=== PATIENT | female | born 1990 | race Caucasian/White ===

== ENCOUNTER 2019-01-14 13:21 | Emergency (ER) | payer SELFPAY ==
--- NOTE | 2019-01-14 14:10 | ED Physician Documentation ---
Upper Respiratory Symptoms - HISTORIAN Historian: patient - HPI Stated Complaint: fever/body aches Chief Complaint: Upper Respiratory Symptoms Onset: days ago (3) Associated Symptoms: fever, chills, sore throat, productive cough, other (body aches) - ROS CONST/EYES: denies: weakness, eye redness, eye itching, other CVS/RESP: none LYMPH: leg swelling, rash, swollen glands, ankle swelling, other GI/: none NEURO/PSYCH: denies: fainting, dizziness, confusion, anxiety, depression, other MS/SKIN: denies: joint pain, muscle aches, rash, other - PAST HX Lung Disease: none Other History: other (depression) Allergies/Adverse Reactions: Allergies Allergy/AdvReac Type Severity Reaction Status Date / Time No Known Allergies Allergy Verified 01/14/19 14:02 Home Medications: Ambulatory Orders Medication Instructions Recorded Lamotrigine [Lamictal] 25 mg PO DAILY 11/28/18 Sertraline HCl [Zoloft] 50 mg PO DAILY 11/28/18 Trazodone HCl 50 mg PO DAILY 11/28/18 - SOCIAL HX Smoking History: cigarettes Drug Use: marijuana - FAMILY HX Family History: denies: none - VITAL SIGNS Vital Signs: Vital Signs Temp Pulse Resp BP Pulse Ox 98.4 F 102 H 16 118/68 98 01/14/19 13:32 01/14/19 13:32 01/14/19 13:32 01/14/19 13:32 01/14/19 13:32 - REVIEWED ASSESSMENTS Nursing Assessment Reviewed: Yes Vitals Reviewed: Yes Progress - Progress Progress: Patient presents with likely influenza - nasal swab negative. ED Results Lab/Radiology - Orders Orders: ED Orders Category Date Time Status INFLUENZA A&B Stat Lab 01/14/19 13:24 Ordered Rapid Strep [GRP A STREP SCREEN] Stat Lab 01/14/19 Ordered Upper Respiratory Symptoms - EXAM General Appearance: mild distress, other (ill appearing) EENT: eyes nml inspection, nml ENT inspection, lids & conjunct. nml, PERRL, ear nml, nose nml, pharynx nml, airway nml Respiratory: no resp. distress, breath sounds nml, no pain on inspiration, speaks full sentences, no pleuritic chest pain Abdomen: non-tender, no organomegaly, nml bowel sounds, no distention CVS: reg rate & rhythm, heart sounds normal, equal pulses, no murmur, no gallop, PMI nml, no JVD, no friction rub, 24 Skin: color nml, no rash, warm,dry Extremities: non-tender, normal range of motion, no evidence of injury, no edema, J, [employer] Neuro/Psych: oriented x3, neuro intact, mood/affect nml, CN's nml as tested Discharge Clincal Impression: Viral syndrome Referrals: Primary Doctor,No [Primary Care Provider] - 2 Days Additional Instructions: Treat your symptoms with over the counter medication. 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 Dayquil can be taken every 4 hours. (Caution: Dayquil and Nyquil contain 325mg of tyelnol/acetaminophen per tablespoon) You may want to try Vicks rub on your chest and/or feet. Cough drops as needed for cough and sore throat. Increase your fluid intake juices, hot tea, non-caffeinated beverages Vitamin C may be helpful in decreasing the length of your cold. Use a humidifier in the room where you sleep. You can also sit in a steam filled bathroom 1-2 times a day. Tylenol every 4 hours 650mg -1000mg (do not exceed 4000mg in 24 hours) as needed for fever, pain and body aches. Alternate with Ibuprofen Ibuprofen 600-800mg every 6 hours as needed for fever, pain and body aches. See your primary care doctor if your symptoms become worse or do not improve in the next 2-3 days. Condition: Stable Disposition: 01 HOME, SELF-CARE Decision to Admit: NO Decision Time: 14:15
[2019-01-14] MEDS ORDERED: KETOROLAC TROMETHAMINE 60 MG/2 ML VIAL IM ONE (14:13)
[2019-01-14] MEDS ORDERED: ACETAMINOPHEN 500 MG TABLET PO ONE (14:13)
[2019-01-14 14:53] VITALS: BP 120/85
== END 2019-01-14 14:49 | disposition home or self-care (01) ==
LOC: ED 13:21
DX: B34.9 Viral infection, unspecified (principal); Z72.0 Tobacco use
CPT/HCPCS: 87070; 87400; 87880; 96372; 99282; 99283; J1885

== ENCOUNTER 2019-02-05 21:29 | Emergency (ER) | payer SELFPAY ==
--- NOTE | 2019-02-05 21:57 | ED Physician Documentation ---
Abdominal Pain - HISTORIAN Historian: patient - HPI Stated Complaint: Gastric pain for a couple weeks, got worse tonight with some emesis Chief Complaint: Abdominal Pain Onset: other (over two weeks ) Duration: waxing, waning Timing: other (improved when she is not standing) Context: denies: out of country travel, bad food, recent trauma Severity: moderate (although severe when the "attack hits" ) Quality: burning Associated Symptoms: nausea, vomiting. denies: fever, diarrhea Exacerbated by: upright position, walking Relieved by: supine, remaining still, antacids Further Comments: yes (She states over two weeks ago she started with nausea and vomiting and she was seen) - ROS CONST: no problems GI/: none CVS/RESP: none EYES/ENT: none MS/SKIN/LYMPH: none NEURO/PSYCH: none - SOCIAL HX Smoking History: cigarettes Alcohol Use: none Drug Use: none - FAMILY HX Family History: none - PAST HX Past History: none Ischemic Bowel Risk Factors: none Other History: none Surgeries/Procedures: none Immunizations: UTD Home Medications: Ambulatory Orders Medication Instructions Recorded Lamotrigine [Lamictal] 25 mg PO DAILY 11/28/18 Sertraline HCl [Zoloft] 50 mg PO DAILY 11/28/18 Trazodone HCl 50 mg PO PRN PRN 11/28/18 Allergies/Adverse Reactions: Allergies Allergy/AdvReac Type Severity Reaction Status Date / Time No Known Allergies Allergy Verified 01/14/19 14:02 - VITAL SIGNS Vital Signs: Vital Signs Temp Pulse Resp BP Pulse Ox 98.7 F 77 14 99/69 97 02/05/19 21:29 02/05/19 23:41 02/05/19 23:41 02/05/19 23:41 02/05/19 23:41 - REVIEWED ASSESSMENTS Nursing Assessment Reviewed: Yes Vitals Reviewed: Yes Progress - Progress Progress: 2305: discussed current findings - she reports she feels "SO MUCH BETTER" - denies any nausea and denies any pain. Discussed plan - she is agreeable DG ED Results Lab/Radiology - Lab Results Lab Results: Lab Results 02/05/19 02/05/19 02/05/19 22:40 22:40 20:03 WBC 7.10 K/ul K/ul (4.00-12.00) RBC 4.90 M/ul M/ul (3.90-5.20) Hgb 14.6 g/dL g/dL (12.0-16.0) Hct 44.3 % % (34.5-46.5) MCV 90.0 fl fl (80.0-100.0) MCH 29.8 pg pg (28.0-34.0) MCHC 33.0 g/dL g/dL (30.0-36.0) RDW 14.1 % % (11.3-14.3) Plt Count 256 K/mm3 K/mm3 (130-400) Neut % (Auto) 47.0 % % (39.0-79.0) Lymph % (Auto) 44.6 % % (16.0-50.0) Coles % (Auto) 6.3 % % (0.0-11.0) Eos % (Auto) 1.0 % % (0.0-6.8) Baso % (Auto) 1.1 % % (0.0-1.5) Neut # (Auto) 3.3 # k/uL # k/uL (1.4-7.7) Lymph # (Auto) 3.2 # k/uL # k/uL (0.6-4.0) Coles # (Auto) 0.4 # k/uL # k/uL (0.0-0.9) Eos # (Auto) 0.1 # k/uL # k/uL (0.0-0.6) Baso # (Auto) 0.1 # k/uL # k/uL (0.0-0.5) Sodium 138 mmol/L mmol/L (136-145) Potassium 3.9 mmol/L mmol/L (3.5-5.1) Chloride 105 mmol/L mmol/L (98-107) Carbon Dioxide 26 mmol/L mmol/L (22-30) BUN 8 mg/dL mg/dL (7-17) Creatinine 0.62 mg/dL mg/dL (0.52-1.04) Estimated Creat Clear 173 Est GFR ( Amer) > 60 (60 - ) Est GFR (Non-Af Amer) > 60 (60 - ) Glucose 88 mg/dL mg/dL (74-106) Calcium 9.0 mg/dL mg/dL (8.4-10.2) Total Bilirubin 0.3 mg/dL mg/dL (0.2-1.3) AST 47 U/L H U/L (15-46) ALT 31 U/L U/L (13-69) Alkaline Phosphatase 96 U/L U/L (38-126) Total Protein 8.1 g/dL g/dL (6.3-8.2) Albumin 4.0 g/dL g/dL (3.5-5.0) Urine Color [place] (YELLOW) Urine Appearance Cloudy H (CLEAR) Urine pH 7.5 (5.0 - 8.0) Ur Specific [place] 1.025 (1.010-1.030) Urine Protein 1+ mg/dL H mg/dL (NEGATIVE) Urine Ketones Trace mg/dL H mg/dL (NEGATIVE) Urine Occult Blood 2+ H (NEGATIVE) Urine Nitrite Negative (NEGATIVE) Urine Bilirubin Negative (NEGATIVE) Urine Urobilinogen 1.0 Eu Eu (0.2-1.0) Ur Leukocyte Esterase 1+ H (NEGATIVE) Urine Glucose Negative mg/dL mg/dL (NEGATIVE) Urine HCG, Qual Negative (NEGATIVE) - Orders Orders: ED Orders Category Date Time Status IV Started NOW Care 02/05/19 22:10 Active CBC/PLATELET/DIFF Stat Lab 02/05/19 22:40 Completed CMP Stat Lab 02/05/19 22:40 Completed UA MACRO DIP ONLY Routine Lab 02/05/19 20:03 Completed URINE HCG Routine Lab 02/05/19 20:03 Completed 0.9 % Sodium Chloride [Normal Saline] 1,000 ml Med 02/05/19 22:10 Discontinued IV NOW Mag Hydrox/Aluminum Hyd/Simeth [Mylanta] 30 ml Med 02/05/19 21:57 Discontinued Lidocaine 2% Viscous [Xylocaine 2% Viscous] 15 ml PO NOW Ondansetron HCl Rapdis [Zofran Odt] Med 02/05/19 23:09 Discontinued 8 mg PO NOW ONE Ondansetron HCl/Pf [Zofran] Med 02/05/19 22:10 Discontinued 4 mg IVP NOW ONE Pantoprazole Sodium [Protonix] 40 mg Med 02/05/19 22:11 Discontinued 0.9 % Sodium Chloride [Normal Saline] 50 ml IV NOW Abdominal Pain Physical Exam - Physical Exam General Appearance: alert, mild distress EENT: eye inspection normal, pharynx normal, no signs of dehydration NECK: normal inspection RESPIRATORY: no resp distress, chest non-tender, breath sounds normal CVS: reg rate & rhythm, heart sounds normal, equal pulses ABDOMEN: soft, normal bowel sounds, tenderness (epigatric ) BACK: normal inspection, no CVA tenderness SKIN: warm/dry, normal color EXTREMITIES: non-tender, normal range of motion, no evidence of injury, no edema NEURO: oriented X3 Vital Signs: Vital Signs Temp Pulse Resp BP Pulse Ox 98.7 F 77 14 99/69 97 02/05/19 21:29 02/05/19 23:41 02/05/19 23:41 02/05/19 23:41 02/05/19 23:41 Discharge Clincal Impression: Epigastric pain Referrals: Primary Doctor,No [Primary Care Provider] - 2 Days Comments: 1. Protonix 40 mg take 1 by mouth daily 2. Zofran 4 mg ODT take 1 by mouth every 8 hours as needed for nausea 3. NO SMOKING 4. Decrease caffeine 5. DO not lay down sooner than 45 min after eating 6. Follow up with a PCP in next week 7. Return to ER for any increasing concerns Condition: Stable Disposition: 01 HOME, SELF-CARE Decision to Admit: NO Date of Decison to Admit: 02/05/19 Decision Time: 23:40
[2019-02-05] MEDS: MAG HYDROX/ALUMINUM HYD/SIMETH 30 ML, Lidocaine 2% Viscous 15 ML PO ONE ×2 (22:20)
[2019-02-05 22:26] LABS: APPEARANCE,URINE CLOUDY (CLEAR); COLOR,URINE AMBER (YELLOW)
[2019-02-05 22:27] LABS: OCCULT BLOOD,URINE 2+ (NEGATIVE); PH URINE 7.5 (5.0 - 8.0); URINE HCG NEGATIVE (NEGATIVE)
[2019-02-05] MEDS: 0.9 % SODIUM CHLORIDE 1,000 ML IV ONE (22:40)
[2019-02-05] MEDS: ONDANSETRON HCL/PF 4 MG/ 2ML VIAL IVP ONE (22:40)
[2019-02-05] MEDS: PANTOPRAZOLE SODIUM 40 MG in 0.9 % SODIUM CHLORIDE 50 ML IV ONE (22:40)
[2019-02-05 23:10] LABS: BASOPHILS % 1.1 % (0.0-1.5); MEAN CORPUSCULAR HEMOGLOBIN 29.8 pg (28.0-34.0); MONOCYTES % 6.3 % (0.0-11.0); NEUTROPHILS # 3.3 # k/uL (1.4-7.7)
[2019-02-05 23:11] LABS: eGFR (Non-African) > 60
[2019-02-05] MEDS: ONDANSETRON HCL 4 MG TAB.RAPDIS PO ONE (23:12)
[2019-02-05 23:44] VITALS: BP 99/69
== END 2019-02-05 23:20 | disposition home or self-care (01) ==
LOC: ED 21:29
DX: R10.13 Epigastric pain (principal)
CPT/HCPCS: 36415; 80053; 81002; 81025; 85025; 87086; 96374; 96375; 99283; 99284; A9270; J2405; J7030; S1016

== ENCOUNTER 2019-04-19 00:56 | Emergency (ER) | payer SELFPAY ==
[2019-04-20] MEDS ORDERED: NORMAL SALINE 1,000 ML IV.SOLN IV ONE (01:00)
[2019-04-29 18:17] LABS: BASOPHILS % 0.7 % (0.0-1.5); NEUTROPHILS # 2.6 # k/uL (1.4-7.7); eGFR (Non-African) > 60
== END 2019-04-19 02:50 ==
LOC: ED 00:56
DX: S82.441A Displaced spiral fracture of shaft of right fibula, initial encounter for closed fracture (principal); F10.929 Alcohol use, unspecified with intoxication, unspecified; X58.XXXA Exposure to other specified factors, initial encounter; Y93.41 Activity, dancing; Y99.8 Other external cause status; Y90.8 Blood alcohol level of 240 mg/100 ml or more
CPT/HCPCS: 29515; 36415; 73610; 80053; 80320; 85025; 99283; 99285; G0480; S1016

== ENCOUNTER 2019-09-13 07:48 | Emergency (ER) | payer SELFPAY ==
--- NOTE | 2019-09-13 08:03 | ED Physician Documentation ---
Lower Extremity Problem - HISTORIAN Historian: patient - HPI Stated Complaint: L knee pain Chief Complaint: Lower Extremity Problem Location of Injury: L knee Onset: days ago (2) Timing: better Recent Injury: No Where: home Severity: moderate (04/15) Quality: pain Exacerbated By: walking, movement Relieved By: rest Further Comments: yes (She has left knee pain x 2 days - she had swelling yesterday but it is better today. She has taken ibuprofen this am with mild help. Pain is worse with standing and she works both jobs today and would like to not work. She has no injury to report. No redness or pain to touch) - ROS CONST: no problems - PAST HX Past History: none Surgeries/Procedures: none Immunizations: UTD Allergies/Adverse Reactions: Allergies Allergy/AdvReac Type Severity Reaction Status Date / Time No Known Allergies Allergy Verified 09/13/19 08:01 Home Medications: Ambulatory Orders Medication Instructions Recorded NK 09/13/19 - SOCIAL HX Smoking History: cigarettes Alcohol Use: none Drug Use: none - FAMILY HX Family History: none - VITAL SIGNS Vital Signs: Vital Signs Temp Pulse Resp BP Pulse Ox 89 15 107/65 99 09/13/19 08:11 09/13/19 08:11 09/13/19 08:11 09/13/19 08:11 - REVIEWED ASSESSMENTS Nursing Assessment Reviewed: Yes Vitals Reviewed: Yes Lower Extremity Problem - EXAM General Appearance: no distress Hips: bilateral hip: non-tender, normal range of motion, no evidence of injury Knees: bilateral: non-tender, normal inspection, normal range of motion, no evidence of injury, N/A: bone tenderness, joint effusion, nodules, pain, soft tissue tenderness, swelling Neuro/Tendon: normal sensation EENT: eye inspection normal RESPIRATORY: no resp distress, chest non-tender, breath sounds normal CVS: reg rate & rhythm, heart sounds normal, equal pulses JOINT: joints nml VASCULAR: no vascular compromise NEURO/PSYCH: oriented X3 SKIN: warm/dry, normal color BACK: normal inspection, no CVA tenderness Discharge Clincal Impression: Right knee pain Qualifiers: Chronicity: acute Qualified Code(s): M25.561 - Pain in right knee Referrals: Primary Doctor,No [Primary Care Provider] - 2 Days Comments: 1. work note as requested 2. Elevate knee and ice with OTC meds as directed as needed for pain 3. Follow up with PCP in 2-4 days 4. Return to ER for any increased concerns Condition: Stable Disposition: 01 HOME, SELF-CARE Decision to Admit: NO Date of Decison to Admit: 09/13/19 Decision Time: 08:08
[2019-09-13 08:18] VITALS: BP 107/65
== END 2019-09-13 08:11 | disposition home or self-care (01) ==
LOC: ED 07:48
DX: M25.561 Pain in right knee (principal)
CPT/HCPCS: 99281; 99282